=== PATIENT | female | born 1945 | race Caucasian/White ===

== ENCOUNTER → 2018-11-08 | Outpatient (CLI) | payer MEDICARE, OTHER | END | disposition home or self-care (01) | LOC: PCVCCLINIC 13:00 | PROVIDERS: ATTEND Internal Medicine Cardiovascular Disease | DX: I10 Essential (primary) hypertension (principal); E78.00 Pure hypercholesterolemia, unspecified; R09.89 Other specified symptoms and signs involving the circulatory and respiratory systems; R93.1 Abnormal findings on diagnostic imaging of heart and coronary circulation; K21.9 Gastro-esophageal reflux disease without esophagitis; Z82.49 Family history of ischemic heart disease and other diseases of the circulatory system; Z88.5 Allergy status to narcotic agent; Z79.82 Long term (current) use of aspirin | CPT/HCPCS: 93005; G0463 ==

== ENCOUNTER → 2018-12-25 | Outpatient (CLI) | payer MEDICARE, OTHER ==
--- NOTE | 2018-12-25 12:56 | PCVCIMAG ---
EXAM: BILATERAL CAROTID DUPLEX INDICATION: Carotid Occlusive Disease. FINDINGS: Doppler Measurements (centimeters per second): RIGHT: Peak CCA-96, Peak ECA-84, Diastolic ICA-24, Peak ICA-80, ICA/CCA Ratio-0.8. LEFT: Peak CCA-91, Peak ECA-89, Diastolic ICA-31, Peak ICA-102, ICA/CCA Ratio-1.1. RIGHT CAROTID: The carotid bulb has mild plaque. The proximal internal carotid artery shows <40% stenosis. The common carotid artery shows no significant stenosis. The external carotid artery shows no significant stenosis. LEFT CAROTID: The carotid bulb has mild plaque. The proximal internal carotid artery shows <40% stenosis. The common carotid artery shows no significant stenosis. The external carotid artery shows no significant stenosis. Antegrade flow in both vertebral arteries. IMPRESSION: <40% stenosis of the right internal carotid artery with mild plaque. <40% stenosis of the left internal carotid artery with mild plaque. LOC:[place] [id number]
--- NOTE | 2018-12-25 14:47 | PCVCIMAG ---
APPROVED REPORT Study performed: 12/25/2018 11:49:55 Exam: Stress Echocardiogram Indication: Hypertension, Hyperlipidemia, Screening for CAD Patient Location: Echo lab Stress Nurse: June Chapman RN Room #: 2 Status: routine Ht: 5 ft 7 in HR: 80 bpm BP: 136/78 mmHg Rhythm: NSR Medical History Medical History: Hyperlipidemia, HTN Cardiac Risk Factors: HTN, Hyperlipidemia Previous Cardiac Procedures: none Pretest Chest Pain Characteristics: No chest pain Exercise History: Indeterminate Procedure The patient underwent an Exercise Stress Test using the [place] Protocol. Blood pressure, heart rate, and EKG were monitored. An Echocardiogram was performed by maintenance service technician in four stages in quad fashion. At peak stress, four selected images were obtained and placed side by side with resting images for comparison. Stress Test Details Stress Test: Exercise stress testing was performed using a [place] protocol. HR Resting HR: 80 bpmMax Heart Rate (APMHR): 148 bpm Max HR Achieved: 157 bpmTarget HR (85% APMHR): 125 bpm % of APMHR: 106 Recovery HR: 96 bpm HR response to stress: Normal HR response to stress BP Resting BP: 136/78 mmHg Max BP: 140/78 mmHg Recovery BP: 110/60 mmHg BP response to stress: Normal blood pressure response to stress. ECG Resting ECG: Sinus Rhythm Stress ECG: Sinus Rhythm ST Change: Non-ischemic Maximum ST Deviation: -0.90 mm Arrhythmia: Rare PVC,occ PAC Recovery ECG: Sinus Rhythm Recovery ST Change: Non-ischemic Recovery ST Deviation: -0.60 mm Recovery Arrhythmia: Occ PACs Clinical Reason for Termination: Maximal effort Stress Symptoms: none Exercise duration: 8 min 00 sec Highest Stage Achieved: Stage 3: 3.4 mph at 14% grade. Exercise capacity: 10.1 METs Overall Exercise Capacity for Age: Average Angina Score: None No complications. Stress ECG Conclusion The patient exercised according to the [place] protocol for 8:00 mins; achieving a work level of 10.1 METS. The resting heart rate of 80 bpm ivanna to a maximum heart rate of 157 bpm. This value represent 106% of the maximal, age-predicted heart rate. The resting blood pressure of 136/78 mmHg, ivanna to a maximum blood pressure of 140/80 mmHg. The exercise test was stopped due to fatigue. Arzola Treadmill Score is 12.5 which is Low risk. Pre-Stress Echo The resting Echocardiogram showed normal left ventricular contractility with an estimated Ejection Fraction of about 55-60%. Normal wall motion in all segments on baseline images. Post-Stress Echo The stress Echocardiogram showed normal left ventricular contractility with an estimated Ejection Fraction of about 65-70%. Normal augmentation of wall motion in all segments on post stress images. Clinical No clinical or ECG evidence for ischemia. Conclusion Clinical Response: Non-ischemic Exercise Capacity: Average Stress ECG Response: Non-ischemic Stress Echo Images: Non-ischemic No clinical, EKG or echocardiographic evidence for ischemia. No echocardiographic evidence for exercise induced ischemia. Normal stress echocardiogram with maximal exercise stress. Normal color doppler. No regurgitation or stenosis present on pulmonic, mitral, tricuspid or aortic valves. <Conclusion> No clinical, EKG or echocardiographic evidence for ischemia. No echocardiographic evidence for exercise induced ischemia. Normal stress echocardiogram with maximal exercise stress. Normal color doppler. No regurgitation or stenosis present on pulmonic, mitral, tricuspid or aortic valves.
== END | disposition home or self-care (01) ==
LOC: PCVCIMAG 10:36
PROVIDERS: ATTEND Internal Medicine Cardiovascular Disease
DX: I65.23 Occlusion and stenosis of bilateral carotid arteries (principal); I10 Essential (primary) hypertension; Z88.5 Allergy status to narcotic agent; Z88.8 Allergy status to other drugs, medicaments and biological substances
CPT/HCPCS: 36415; 80061; 93325; 93351; 93880